=== PATIENT | male | born 2000 | race Caucasian/White ===

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

== ENCOUNTER 2023-11-07 10:39 | Outpatient (REF) | payer OTHER, MEDICAID, SELFPAY ==
--- NOTE | 2023-11-07 08:10 | SKI_PTH ---
PATIENT: Jed Gimenez LOC: [facility] U#:[id number] AGE/SX: 23/M ROOM: RE11/07/[address]: Veronica Coley : 2000 BED: DIS: 11/07/2023 SPEC #: [id number] RECD: 11/07/23 18:22 STATUS: SUZI REaB #: [id number] KENIA: 11/07/23 08:[address]: Veronica Coley DEPT: Surgical Specimen RECD BY: Nemo Pritchett Tissues: 1 - SKIN BIOPSY(SHAVE/PUNCH) Procedures: SKIN LEVEL 4 Comments: [id number]
== END 2023-11-07 10:40 | disposition home or self-care (01) ==
LOC: NCHCN 10:39
PROVIDERS: PCP Family Medicine; Visit Provider Family Medicine
DX: D48.19 Other specified neoplasm of uncertain behavior of connective and other soft tissue (principal)
CPT/HCPCS: 88305

== ENCOUNTER 2024-09-02 12:22 | Outpatient (REF) | payer OTHER, MEDICAID, SELFPAY ==
[2024-09-03 13:02] LABS: Abs Immature Grans 0.01 10^3/uL (0.0-0.06); Absolute Basophil Count 0.05 10^3/uL (0.0-0.2); Absolute Eosinophil Count 0.07 10^3/uL (0.0-0.7); Absolute Monocyte Count 0.38 10^3/uL (0.1-0.8); Absolute Neutrophil Count 2.72 10^3/uL (1.2-6.7); Eosinophils % 1.4 %; HCT 43.8 % (40.0-50.0); Immature Grans % 0.2 %; MCH 30.1 pg (27.0-33.0); MCHC 34.2 % (32.0-36.0); MCV 88 fL (80-95); MPV 11.9 fL (8.0-11.0); Monocytes % 7.4 %; Platelet Count 183 10^3/uL (130-400); RBC 4.98 10^6/uL (4.36-5.78); RDW 11.6 % (11.8-14.1); RDW-SD 37.2 fL; WBC 5.13 10^3/uL (4.4-10.8)
[2024-09-03 13:04] LABS: ALT 28 U/L (16-63); AST 17 U/L (15-37); Albumin 4.4 g/dL (3.4-5.0); Alkaline Phosphatase 62 U/L (46-116); BUN 15 mg/dL (7-18); CO2 30.4 mmol/L (21.0-32.0); CREATININE 1.2 mg/dL (0.70-1.30); Calcium 9.3 mg/dL (8.5-10.1); Chloride 103 mmol/L (98-107); Estimated GFR 88.24 (mL/min/1.73m2); Glucose 83 mg/dL (74-106); Potassium 4.3 mmol/L (3.5-5.1); Sodium 141 mmol/L (136-145); Total Protein 7.9 g/dL (6.4-8.2)
[2024-09-08 11:40] LABS: Misc Referral (UVM) See Comments
== END 2024-09-02 12:23 | disposition home or self-care (01) ==
LOC: NCHCN 12:22
PROVIDERS: PCP Family Medicine; Visit Provider Family Medicine
DX: R68.81 Early satiety (principal)
CPT/HCPCS: 82947; 84520; 82040; 82247; 82310; 82374; 82435; 82565; 84075; 84132; 84155; 84295; 84450; 84460; 85025